=== PATIENT | male | born 2000 | race Two or more races ===

== ENCOUNTER 2024-11-21 01:12 | Emergency (ER) | payer OTHER ==
[~2024-11-21] VITALS: Ht 172.7 cm; Wt 78.2 kg
[2024-11-21 01:36] LABS: Urine Bacteria None Seen /hpf (None Seen)
[2024-11-21 01:53] LABS: Urine Blood 3+ /uL (Negative); Urine Clarity Ex.Turbid (Clear); Urine Color Light-Orange (Yellow); Urine Mucus FEW (None Seen); Urine Protein, UAD 3+ (Negative); Urine Specific Gravity 1.034 (1.001-1.035); Urine Squamous Epithelial Cell FEW /hpf (<5); Urine Urobilinogen 2 mg/dL (Negative); Urine WBC 946 /HPF (0-3); Urine pH 7.5 (5.0-9.0)
[2024-11-21] MEDS: IBUPROFEN 600 MG TAB PO ONE (02:00)
[2024-11-21] MEDS: cefTRIAXone SOD 1,000 MG VL IM ONE (02:00)
[2024-11-21] MEDS ORDERED: IBUP-1454 PO (02:04)
[2024-11-21] MEDS ORDERED: CIPR-173 PO (02:04)
--- NOTE | 2024-11-21 02:04 | ED.PDOC ---
General HPI Comments PT PRESENTED TO ED FOR URINARY S/S: DYSURIA, URINARY FREQUENCY/URGENCY AND "RED- ORANGE" COLOR URINE X12 HOURS. Reports chills denies fevers, notes no nausea vomiting or diarrhea. Does state recent travel in the car had the hold his urine for over 45 minutes before he could urinate states symptoms started after that. Chief Complaint: Urinary Time Seen by MD: 01:31 Reviewed notes: Nurses Notes, Medications, Allergies Allergies: Coded Allergies: No Known Drug Allergy (Verified Allergy, Unknown, 11/21/24) Home Meds Active Scripts Ibuprofen (Ibuprofen) 600 Mg Tab, 1 TAB PO TID PRN for 4 Days, #12 TAB Prov:TRISTENHOMERK SHOE REPAIRER HELPER 11/21/24 Ciprofloxacin Hcl (Cipro) 500 Mg Tab, 500 MG PO BID for 7 Days, #14 TAB Prov:TRISTENMITCH Vela SH[employer] REPAIRER HELPER 11/21/24 Information Source: Patient Mode of Arrival: Ambulatory Past Medical History PAST MEDICAL HISTORY: Denies Surgical History: Denies all surgeries Family History Family History: Reviewed,noncontributory to illness Social History Smoker: Non-Smoker Alcohol: Denies ETOH Use Drugs: Denies Drug Use Constitutional: denies: chills, diaphoresis, fatigue, fever, malaise, sweats, weakness, others EENTM: denies: blurred vision, double vision, ear bleeding, ear discharge, ear drainage, ear pain, ear ringing, eye pain, eye redness, hearing loss, mouth pain, mouth swelling, nasal discharge, nose bleeding, nose congestion, nose pain, photophobia, tearing, throat pain, throat swelling, voice changes, others Respiratory: denies: cough, hemoptysis, orthopnea, SOB at rest, shortness of breath, SOB with excertion, stridor, wheezing, others Cardiovascular: denies: chest pain, dizzy spells, diaphoresis, Dyspnea on exertion, edema, irregular heart beat, left arm pain, lightheadedness, palpitations, PND, syncope, others Gastrointestinal: denies: abdomen distended, abdominal pain, blood streaked bowels, constipated, diarrhea, dysphagia, difficulty swallowing, hematemesis, melena, nausea, poor appetite, poor fluid intake, rectal bleeding, rectal pain, vomiting, others Genitourinary: reports: burning, hematuria; denies: dysuria, flank pain, frequency, incontinence, penile discharge, penile sore, pain, testicle pain, testicle swelling, urgency, others Neurological: denies: dizziness, fainting, headache, left sided numbness, left sided weakness, numbness, paresthesia, pre-existing deficit, right sided numbness, right sided weakness, seizure, speech problems, tingling, tremors, weakness, others Musculoskeletal: denies: back pain, gout, joint pain, joint swelling, muscle pain, muscle stiffness, neck pain, others Integumetry: denies: bruises, change in color, change in hair/nails, dryness, laceration, lesions, lumps, rash, wounds, others Allergic/Immunocompromised: denies: Difficulty Healing, Frequent Infections, Hives, Itching, others Hematologic/Lymphatic: denies: anemia, blood clots, easy bleeding, easy bruising, swollen glands, others Endocrine: denies: excessive hunger, excessive sweating, excessive thirst, excessive urination, flushing, intolerance to cold, intolerance to heat, unexplained weight gain, unexplained weight loss, others Psychiatric: denies: anxiety, bipolar disorder, depression, hopeless, panic disorder, schizophrenia, sleepless, suicidal, others Physical Exam General Appearance: No Apparent Distress, Normal HEENT: Pharynx Normal Neck: Full Range of Motion, Non-Tender Respiratory: Chest Non-Tender, Lungs Clear, No Accessory Muscle Use, No Respiratory Distress, Normal Breath Sounds Cardiovascular: No Murmur, Normal Peripheral Pulses, Regular Rate/Rhythm Breast Exam: Deferred Gastrointestinal: No Organomegaly, Non Tender, No Pulsatile Mass, Normal Bowel Sounds, Soft, Suprapubic (Tenderness palpated over suprapubic area), Other (Negative CVA tenderness) Genitalia: Deferred Pelvic: Deferred Rectal: Deferred Extremities: Normal capillary refill, Normal inspection, Normal range of motion, Non-tender, No pedal edema Musculoskeletal : Apperance: Normal Neurologic: Alert, hair colorist II-XII nml as Tested, No Motor Deficits, Normal Affect, Normal Mood, No Sensory Deficits Cerebellar Function: Normal Reflexes: Normal Skin: Dry, Normal Color, Warm Lymphatic: No Adenopathy Was a procedure done? Was a procedure done?: No Differential Diagnosis Kidney stone (Female): N/A Urinary Problem (Male): Epididymitis, Prostatitis, Plelonephritis, Urethritis, Urinary Retention, UTI X-Ray, Labs, Meds, VS Vital Signs Date Time Temp Pulse Resp B/P (MAP) Pulse Ox O2 Delivery O2 Flow Rate FiO2 11/21/24 01:34 97.7 72 16 119/73 (88) 95 97.7 Lab Test 11/21/24 01:35 Range/Units Urine Color Light-orange Yellow Urine Clarity Ex.turbid Clear Urine pH 7.5 5.0-9.0 Urine Specific [place] 1.034 1.001-1.035 Urine Protein 3+ H Negative Urine Ketones Negative Negative Urine Blood 3+ H Negative /uL Urine Nitrite Negative Negative Urine Bilirubin Negative Negative Urine Urobilinogen 2 H Negative mg/dL Urine Leukocyte Esterase 3+ Negative /uL Urine RBC 1900 0 - 3 /hpf Urine Microscopic WBC 946 H 0-3 /HPF Urine Squamous Epithelial Cells Few <5 /hpf Urine Transitional Epithelial Cells Few <2 /hpf Urine Bacteria None seen None Seen /hpf Urine Mucus Few None Seen Urine Glucose Normal Normal mg/dL X-Ray, Labs, Meds, VS Comment UA positive for RBCs, and high level of WBCs likely infection. Patient given Rocephin 1 g IM and ibuprofen 600 mg p.o. states improvement in symptoms requesting discharge at this time. Script trial of Cipro twice daily x7 days to patient's pharmacy advised to take medications as prescribed side effects discussed. Increase p.o. fluids with electrolytes consider cranberry juice. Avoid caffeine and alcohol. Follow up with your PCP in 2-3 days consider repeat urine ER return precautions given patient indicates understanding and agrees with discharge plan of care. Time of 1ST Reevaluation: 01:30 Reevaluation 1ST: Unchanged Time of 2ND Reevaluation: 02:01 Reevaluation 2ND: Improved Patient Education/Counseling: Diagnosis, Treatment, Prognosis, Need For Follow Up Family Education/Counseling: No Family Present Departure 1 Departure Time of Disposition: 02: Impression: Primary Impression: Cystitis with hematuria Disposition: 01 HOME / SELF CARE / HOMELESS Condition: Stable e-Prescriptions Ibuprofen (Ibuprofen) 600 Mg Tab 1 TAB PO TID PRN for 4 Days, #12 TAB Prov: MITCH RAMON 11/21/24 Ciprofloxacin Hcl (Cipro) 500 Mg Tab 500 MG PO BID for 7 Days, #14 TAB Prov: MITCH RAMON 11/21/24 Discharged With: Significant Other Critical Care Note Critical Care Time?: No Stability Stability form required: MITCH Doss November 21, 2024 02:04
[2024-11-21] MEDS ORDERED: CIPR500T4 PO (04:02)
[2024-11-21] MEDS ORDERED: IBUP-1456 PO (04:02)
[2024-11-21 04:04] VITALS: BP 107/73; PULSE 65; RESP 16; TEMP 97.1; O2SAT 98
== END 2024-11-21 04:07 | disposition home or self-care (01) ==
LOC: ER 01:12
DX: N30.91 Cystitis, unspecified with hematuria (principal); Z79.899 Other long term (current) drug therapy
CPT/HCPCS: 81001; 96372; 99283; J0696